=== PATIENT | male | born 1980 | race Caucasian/White ===

== ENCOUNTER → 2017-05-16 | Outpatient (CLI) | payer OTHER ==
[~2017-05-16] VITALS: Ht 177.8 cm; Wt 89.8 kg
[~2017-05-16] MED LIST: BACLOFEN20 M1 PO; CELEXA10 MG PO; CO Q-10200 MG PO; DICYCLOMINE HCL20 MG PO; FISH OIL PO; FLAX SEED OIL1000 M1 PO; FLONASE16 GM; HYDROCODONE-APA1 T45 PO; K-DUR20 ME1 PO; LISINOPRIL10 MG PO; NAPROXEN PO; NEURONTIN100 MG PO; OMEGA 3-6-9 11200 M1 PO; OMEGA 3-6-9 11200 MG PO; OMEPRAZOLE20 M1 PO; SUDAFED 12-HOU120 MG PO; TECFIDERA240 MG PO; TRAMADOL HCL50 M1 PO; UBIDECARENONE PO; VITAMIN B-COMPL1 CA1 PO; VITAMIN D2000 UNIT PO; ZANAFLEX PO; ZYRTEC PO; [UNRECOGNIZED DRUG - OTHER]
== END | disposition home or self-care (01) ==
LOC: CSSDAY 13:30
DX: G35 Multiple sclerosis (principal)
CPT/HCPCS: 96365; J2930

== ENCOUNTER → 2017-05-17 | Outpatient (CLI) | payer OTHER | END | disposition home or self-care (01) | LOC: CSSDAY 07:13 | DX: G35 Multiple sclerosis (principal) | CPT/HCPCS: 96365; J2930 ==

== ENCOUNTER → 2017-05-18 | Outpatient (CLI) | payer OTHER | END | disposition home or self-care (01) | LOC: CSSDAY 07:20 | DX: G35 Multiple sclerosis (principal); Z79.899 Other long term (current) drug therapy | CPT/HCPCS: 96365; J2930 ==

== ENCOUNTER → 2017-05-19 | Outpatient (CLI) | payer OTHER | END | disposition home or self-care (01) | LOC: CSSDAY 13:00 | DX: G35 Multiple sclerosis (principal); Z79.899 Other long term (current) drug therapy | CPT/HCPCS: 96365; J2930 ==

== ENCOUNTER → 2017-05-21 | Outpatient (CLI) | payer OTHER | END | disposition home or self-care (01) | LOC: CSSDAY 05-20 13:00 | DX: G35 Multiple sclerosis (principal); Z79.899 Other long term (current) drug therapy | CPT/HCPCS: 96365; J2930 ==